=== PATIENT | female | born 1990 | race Asian ===

== ENCOUNTER 2016-06-09 15:59 | Emergency (ER) | payer OTHER ==
[~2016-06-09] VITALS: Ht 149.9 cm; Wt 68.0 kg
[2016-06-09 16:07] VITALS: TEMP 36.5; Ht 149.9 cm; Wt 68.0 kg
[2016-06-09] MEDS ORDERED: KETOROLAC TROMETHAMINE 30 MG/ML VIAL IV STA (16:22)
[2016-06-09] MEDS ORDERED: SODIUM CHLORIDE 0.9% 1000ML 1,000 ML IV STA (16:22)
[2016-06-09] MEDS ORDERED: MoRPHine SULFATE 4 MG/ML 1 ML CARP\\VIAL IV PRN (16:30)
[2016-06-09] MEDS ORDERED: ONDANSETRON 4MG OD TAB PO ONE (16:30)
--- NOTE | 2016-06-09 16:30 | EMERGENCY ROOM VISIT NOTE ---
History Report prepared by Steph: Nanci Shaffer Under the Supervision of: Dr. Ed Byrd M.D. First contact with patient: 16:15 Chief Complaint: BACK PAIN Stated Complaint: LEFT BACK PAIN History of Present Illness The patient is a 26 year old female who presents to the Emergency Room with complaints of persistent left sided back pain for the past 2 hours. She rates her discomfort as a 9/10 and notes it is worsened by movement and palpation. She reports she first experienced nausea and vomiting this afternoon, and then the back pain developed. The patient was seen by [facility] earlier this afternoon and was treated with Zofran. Her urine showed no , no significant blood and no signs of infection. She denies any diarrhea, abnormal vaginal discharge or urinary symptoms. She does admit to some vaginal spotting last week. She denies any recent falls, injuries or rashes. She denies any recent sick contacts. The patient admits to a minor cough but denies any shortness of breath. She states there is a chance she is as she and her have had unprotected sexual intercourse recently. She denies any personal or family history of kidney stones but admits to a history of ovarian cysts. The patient denies any medication allergies. Source of History: patient Onset: 2 hours HAND [employer] Position: back (left sided back) Symptom Intensity: 9/10 Timing: other (persistent) Modifying Factors (Worsening): movement, other (palpation) Associated Symptoms: + cough, + nausea, + vomiting, No SOB, No diarrhea, No rash, No urinary symptoms Review of Systems See HPI for pertinent positives & negatives. A total of 10 systems reviewed and were otherwise negative. Past Medical & Surgical Medical Problems: (1) Endometriosis determined by laparoscopy (2) Ovarian cyst Family History Diabetes mellitus Gallbladder disease Hypertension Social History Smoking Status: Never Smoker Smokeless Tobacco Use: No Alcohol Use: occasionally Drug Use: none Marital Status: Housing Status: lives with family Occupation Status: unemployed Current/Historical Medications Scheduled Budesonide (Rhinocort Aqua), 1 SPRAY VALORIE DAILY Ondasetron Odt (Zofran Odt), 4-8 MG SL Q6H Allergies Coded Allergies: No Known Allergies (Unverified , 06/09/16) Physical Exam Vital Signs Date Time Temp Pulse Resp B/P Pulse Ox O2 Delivery O2 Flow Rate FiO2 06/09/16 16:07 36.5 61 18 110/67 100 Room Air Physical Exam GENERAL: Patient is in no acute distress. HEENT: No acute trauma, normocephalic atraumatic, mucous membranes moist, no nasal congestion, no scleral icterus. NECK: No stridor, no adenopathy, no meningismus, trachea is midline. LUNGS: Clear to auscultation bilaterally, no wheeze, no rhonchi, breath sounds equal. HEART: Without murmurs gallops or rubs, regular rate and rhythm. ABDOMEN: Soft, mildly tender in the LUQ, bowel sounds positive, no hernias, no peritonitis. BACK: Left flank discomfort with percussion, left flank soreness to palpation and movement. EXTREMITIES: No cyanosis or edema, full range of motion of all the joints without pain or difficulty, no signs for acute trauma. NEUROLOGIC: Oriented x 3, no acute motor or sensory deficits, no focal weakness. SKIN: No rash, no jaundice, no diaphoresis. Medical Decision & Procedures ER Provider Diagnostic Interpretation: This CT scan was reviewed and interpreted by the radiologist and reviewed by myself. CT SCAN OF THE ABDOMEN AND PELVIS WITHOUT CONTRAST IMPRESSION: 1. No renal, ureteral, or bladder calculi identified 2. No acute inflammatory changes 3. Normal appendix 4. No evidence of bowel obstruction. No evidence of free air. Electronically signed by: Ankit Medrano M.D. 06/09/2016 5:38 PM Laboratory Results 06/09/16 16:40 06/09/16 16:40 Test 06/09/16 16:40 Red Blood Count 4.59 M/uL (4.2-5.4) Mean Corpuscular Volume 87.1 fL (80-100) Mean Corpuscular Hemoglobin 29.8 pg (25-34) Mean Corpuscular Hemoglobin Concent 34.3 g/dl (32-36) RDW Standard Deviation 42.5 fL (36.4-46.3) RDW Coefficient of Variation 13.3 % (11.5-14.5) Mean Platelet Volume 12.2 fL (7.4-10.4) Anion Gap 10.0 mmol/L (3-11) Est Creatinine Clear Calc Drug Dose 94.1 ml/min Estimated GFR () 125.5 Estimated GFR (Non- 108.3 BUN/Creatinine Ratio 13.7 (10-20) Calcium Level 9.2 mg/dl (8.5-10.1) Lipase 165 U/L (73-393) Laboratory results reviewed by me. Medications Administered Medications (Trade) Dose Ordered Sig/Sherri Route Start Time Stop Time Status Last Admin Dose Admin Ondansetron HCl 4 mg 4 mg ONE ONCE PO 06/09/16 16:30 06/09/16 16:31 DC 06/09/16 16:50 4 MG Sodium Chloride (Nss 1000ml) 1,000 ml @ 999 mls/hr Q1H1M STAT IV 06/09/16 16:22 06/09/16 17:22 DC 06/09/16 16:52 999 MLS/HR Morphine Sulfate (MoRPHine SULFATE INJ) 4 mg Q15M PRN IV 06/09/16 16:30 06/23/16 16:29 06/09/16 16:51 4 MG Ketorolac Tromethamine (Toradol Inj) 30 mg NOW STAT IV 06/09/16 16:22 06/09/16 16:25 DC 06/09/16 16:50 30 MG ED Course 1619: The patient was evaluated in room C4. A complete history and physical exam was performed. 1622: Toradol 30 mg IV, NSS 1000 ml @ 999 mls/hr IV. 1630: Morphine Sulfate 4 mg IV, Zofran 4 mg PO. 1750: I reevaluated the patient. She is feeling much better. I discussed her results and discharge instructions and she verbalized complete understanding and agreement. Medical Decision The differential diagnoses considered include: Renal colic, UTI, pyelonephritis , ovarian cyst, musculoskeletal pain, renal failure, electrolyte imbalance, pancreatitis and . There is no leukocytosis or concerning anemia. No significant electrolyte abnormality or kidney failure. Urinalysis results from the outpatient center showed no evidence for infection, was negative. An abdominal and pelvis CT was done, there was no evidence for ureteral stone, no acute surgical pathology. No fluid within the abdomen. The patient received IV saline, IV Toradol, IV morphine and IV Zofran, she feels improved. The patient's pain seems musculoskeletal. It is worse with certain movements and with palpation. It began after vomiting and possibly, she pulled a muscle with forceful vomiting. She is being discharged with conservative measures, [id number] pain meds, she can return for worsening symptoms. Impression Primary Impression: Vomiting Additional Impression: Left flank pain Scribe Attestation The scribe's documentation has been prepared under my direction and personally reviewed by me in its entirety. I confirm that the note above accurately reflects all work, treatment, procedures, and medical decision making performed by me. Departure Information Dispostion Home / Self-Care Prescriptions Ondasetron Odt (ZOFRAN ODT) 4 Mg Tab 4-8 MG SL Q6H for Nausea, #12 TAB Prov: Ed Byrd M.D. 06/09/16 Patient Instructions My [facility] Additional Instructions motrin 600 mg 3x per day for pain may use tylenol also for pain zofran 1-2 tab every 6 hours for nausea as needed ice the sore area today 30 minutes at a time and start heat tomorrow massage may help return for fever or worsening symptoms slowly advance the diet no lifitng and rest Problem Qualifiers
[2016-06-09 17:01] LABS: MEAN CELL VOLUME 87.1 fL (80-100); MEAN CORPUSCULAR HEMOGLOBIN 29.8 pg (25-34); MEAN CORPUSCULAR HGB CONC 34.3 g/dl (32-36); MEAN PLATELET VOLUME 12.2 fL (7.4-10.4); PLATELET COUNT 224 K/uL (130-400); RED BLOOD COUNT 4.59 M/uL (4.2-5.4); WHITE BLOOD COUNT 9.74 K/uL (4.8-10.8)
[2016-06-09] MEDS ORDERED: RHNAQIN NAE (17:11)
[2016-06-09 17:16] LABS: BLOOD UREA NITROGEN 10 mg/dl (7-18); BUN/CREATININE RATIO 13.7 (10-20); CALCIUM 9.2 mg/dl (8.5-10.1); CARBON DIOXIDE 26 mmol/L (21-32); CHLORIDE 102 mmol/L (98-107); CREATININE 0.76 mg/dl (0.60-1.20); GLUCOSE 88 mg/dl (70-99); SODIUM 138 mmol/L (136-145)
--- NOTE | 2016-06-09 17:40 | DIAGNOSTIC IMAGING REPORT ---
CT SCAN OF THE ABDOMEN AND PELVIS WITHOUT CONTRAST CLINICAL HISTORY: Left flank pain hematuria COMPARISON STUDY: No previous studies for comparison. TECHNIQUE: CT scan of the abdomen and pelvis was performed from the lung bases to the proximal femurs. Images are reviewed in the axial, sagittal, and coronal planes. IV contrast was not administered for this examination. CT DOSE: 716.75 mGy.cm FINDINGS: Lower chest: There are minor dependent atelectatic changes. Liver: The unenhanced liver is normal in size, contour, and attenuation. There is no intrahepatic biliary ductal dilatation. Gallbladder: Unremarkable. Spleen: Normal in size and attenuation. Pancreas: Unremarkable. Adrenal glands: Unremarkable. Kidneys: No renal, ureteral, or bladder calculi are visualized. Bowel: There are no transition zones indicate bowel obstruction. The appendix appears normal. There is no acute diverticulitis. Peritoneum: There is no intraperitoneal free air or abdominal ascites. Vasculature: The abdominal aorta is normal in course and caliber. Adenopathy: None. Pelvic viscera: The bladder, and pelvic viscera are unremarkable. Skeletal structures: No destructive osseous lesions are seen. IMPRESSION: 1. No renal, ureteral, or bladder calculi identified 2. No acute inflammatory changes 3. Normal appendix 4. No evidence of bowel obstruction. No evidence of free air. Electronically signed by: Ankit Medrano M.D. 06/09/2016 5:38 PM Dictated Date/Time: 06/09/2016 5:35 PM
[2016-06-09] MEDS ORDERED: ONDA4TAB10 SL (17:48)
[2016-06-09 18:11] VITALS: BP 107/57; PULSE 87; O2SAT 98
== END 2016-06-09 18:14 | disposition home or self-care (01) ==
LOC: C.EDB 16:00 → C.EDC 18:14
DX: R11.2 Nausea with vomiting, unspecified (principal); R10.30 Lower abdominal pain, unspecified; Z83.3 Family history of diabetes mellitus; Z82.49 Family history of ischemic heart disease and other diseases of the circulatory system

== ENCOUNTER → 2017-10-04 | Outpatient (CLI) | payer OTHER ==
[~2017-10-04] MED LIST: RHNAQIN NAE
== END | disposition home or self-care (01) ==
LOC: C.LAB1850 11:28
PROVIDERS: ATTEND Obstetrics & Gynecology
DX: N93.9 Abnormal uterine and vaginal bleeding, unspecified (principal)